=== PATIENT | male | born 1930 | race Hispanic/Latino ===

== ENCOUNTER 2019-03-02 14:48 | Observation (INO) | payer MEDICARE, OTHER ==
[2019-03-02 16:46] LABS: Basophils # (Auto) 0.1 K/mm3 (0.0-0.1); Basophils % (Auto) 1.4 % (0.0-1.8); Eosinophils # (Auto) 0.2 K/mm3 (0.0-0.4); Hematocrit 39.4 % (35.5-45.6); Hemoglobin 13.2 gm/dl (11.8-15.2); Lymphocytes # (Auto) 1.8 K/mm3 (1.2-5.4); Lymphocytes % (Auto) 18.6 % (13.4-35.0); Mean Corpuscular HGB Conc 34 % (32-34); Mean Corpuscular Volume 91 fl (84-94); Monocytes # (Auto) 0.7 K/mm3 (0.0-0.8); Platelet Count 235 K/mm3 (140-440); Red Blood Count 4.31 M/mm3 (3.65-5.03); Red Cell Distribution Width 15.2 % (13.2-15.2)
[2019-03-02 16:54] LABS: BUN/Creatinine Ratio 21; Blood Urea Nitrogen 21 mg/dL (9-20); Calcium 8.8 mg/dL (8.4-10.2); Hemolysis Index 110
[2019-03-02] MEDS ORDERED: LEVAQUIN 250MG/50ML 250 MG/50 ML BAG IV NR (17:02)
[2019-03-02] MEDS ORDERED: LACTATED RINGERS 1,000 ML IV SCH (17:03)
--- NOTE | 2019-03-02 17:07 | Anesthesia Day of Surgery ---
Anesthesia Day of Surgery - Day of Surgery Patient Examined: Yes Patient H&P Reviewed: Yes Patient is NPO: Yes
--- NOTE | 2019-03-02 17:10 | Anesthesia Consultation ---
Anesthesia Consult and Med Hx Date of service: 03/02/19 - Airway Anesthetic Teeth Evaluation: Good ROM Head & Neck: Adequate Mental/Hyoid Distance: Adequate Mallampati Class: Class II Intubation Access Assessment: Good - Pre-Operative Health Status ASA Pre-Surgery Classification: ASA2 Proposed Anesthetic Plan: General - Pulmonary Hx Smoking: Yes (STOPPED X 20 YRS ( SMOKED X 50 YRS)) Hx Sleep Apnea: No (MADNA PRE SCREEN HIGH RISK) - Cardiovascular System Hx Hypertension: Yes - Central Nervous System Hx Back Pain: Yes - Endocrine Hx Hypothyroidism: Yes (ON DAILY MEDS) - Other Systems Hx Cancer: Yes (SKIN CA ON NECK- 5 YRS AGO- REMOVED)
[2019-03-02] MEDS ORDERED: SUBLIMAZE IV PRN (17:12)
[2019-03-02] MEDS ORDERED: ZOFRAN IV PRN (17:12)
[2019-03-02] MEDS ORDERED: SUBLIMAZE ONE (17:46)
[2019-03-02] MEDS ORDERED: AMIDATE IV ONE (17:46)
[2019-03-02] MEDS ORDERED: VERSED IV NR (18:00)
[2019-03-02] MEDS ORDERED: OMNIPAQUE 300 MG/50 ML (CATH LAB) IV ONE (18:02)
[2019-03-02] MEDS ORDERED: METHYLENE BLUE ONE (18:11)
[2019-03-02] MEDS ORDERED: XYLOCAINE MPF 2% ONE (18:19)
[2019-03-02] MEDS ORDERED: ZOFRAN ONE (18:56)
[2019-03-02] MEDS ORDERED: AMBIEN PO PRN (19:01)
[2019-03-02] MEDS ORDERED: TYLENOL PO PRN (19:01)
[2019-03-02] MEDS ORDERED: PERCOCET 5/325 PO PRN (19:01)
--- NOTE | 2019-03-02 19:01 | Post Operative Note ---
Date of procedure: 03/02/19 Pre-op diagnosis: bladder cancer Post-op diagnosis: same Findings: tumor L uo and bn Procedure: cysto turby and rpgs Anesthesia: GETA Surgeon: SAIDA CHOUDHARY Estimated blood loss: minimal Pathology: list (bt) Specimen disposition: to lab Condition: stable Disposition: PACU
[2019-03-02] MEDS ORDERED: ROBINUL ONE (19:19)
--- NOTE | 2019-03-02 19:55 | Operative Report ---
PREOPERATIVE DIAGNOSES: Gross hematuria, bladder tumor. POSTOPERATIVE DIAGNOSES: Gross hematuria, bladder tumor. PROCEDURE: Cystoscopy, resection of bladder tumor. SURGEON: Jefferson Martinez MD ANESTHESIA: General. FINDINGS: This is a gentleman who had previous radiation for prostate cancer with seed many years ago. He presented with gross hematuria. Tumor was seen at the left orifice. He had no hydronephrosis. DESCRIPTION OF PROCEDURE: The patient was brought to the operating room and placed on the operating table. Following induction of anesthesia, placed in lithotomy position, prepped and draped in usual sterile fashion. The patient is 88 years old and a tumor was resected with the bipolar and then we used the Beasley knife with the regular resectoscope for pinpoint Bovie so we preserved and it did not cauterize the orifice. Retrograde at the end of resection showed the orifice and ureter to be open on the left and the right. No other filling defects were noted. The patient tolerated the procedure well. He is 88. We resected the entire tumor down to capsular fibers. We resected the muscle. It was then we were not going to give him therapy in the recovery room as the pharmacy is not prepared for it right now and the bladder was quite thin. The patient tolerated the procedure well. Urine irrigation was clear. A 22, 3-way was placed with clear irrigation. Family notified. Minimal blood loss, brought to recovery in stable condition. JOB# [id number] MARYJANE/ANTONIA
[2019-03-02] MEDS ORDERED: D5W/0.45% NACL/KCL 20 MEQ 20 MEQ/1,000 ML BAG IV SCH (20:00)
--- NOTE | 2019-03-02 20:17 | Post Anesthesia Evaluation ---
- Post Anesthesia Evaluation Patient Participated: Yes Airway Patent: Yes Stable Respiratory Function: Yes Nausea/Vomiting: No Temp > 96.8F: Yes Pain Manageable: Yes Adequeate Hydration: Yes Anesthesia Complications: No Block Receding Appropriately: Not Applicable Patient on Ventilator: No
[2019-03-02] MEDS: COLACE PO SCH (22:34)
[2019-03-03 07:30] VITALS: BP 115/50
[2019-03-03] MEDS: NACL 0.9% IR SCH ×2 (07:41→07:42)
--- NOTE | 2019-03-03 08:16 | Fluoroscopy Report ---
Retrograde urography: History: Bladder tumor. Findings: In the preliminary image there is no radiopaque calculus or abnormal calcification noted. In subsequent images with retrograde contrast in the ureters there is complete filling of the right ureter which is persistent in the delayed images. There is partial emptying of the left ureter noted more than the right. No contrast is seen in the bladder. Impression: Probable incomplete right ureteral obstruction.
[2019-03-03] MEDS: COLACE PO SCH (10:41)
--- NOTE | 2019-03-03 14:03 | Short Stay Summary ---
Short Stay Documentation Date of service: 03/03/19 - History H&P: obtained from office - Allergies and Medications Current Medications: Allergies Penicillins Allergy (Verified 02/25/19 15:57) Hives Home Medications Medication Instructions Recorded Confirmed Last Taken Type Aspirin EC 81 mg PO QDAY 02/25/19 03/02/19 02/23/19 History Dorzolamide HCl/Pf [Dorzolamide 2% 1 drop OP DAILY 02/25/19 02/25/19 03/02/19 12:00 History Eye Drop] Latanoprost 0.005% [Xalatan 0.005%] 1 drop OP QPM 02/25/19 02/25/19 03/02/19 12:00 History Levothyroxine [Synthroid] 50 mcg PO QAM 02/25/19 02/25/19 03/01/19 History Pravastatin [Pravachol] 40 mg PO QHS 02/25/19 02/25/19 03/01/19 History Prednisone [predniSONE (Butch) ER 5 mg PO QDAY 02/25/19 02/25/19 03/01/19 History TAB] hydroCHLOROthiazide [Hctz] 12.5 mg PO QDAY 02/25/19 02/25/19 03/01/19 History Active Medications Acetaminophen (Tylenol) 650 mg PO Q4H PRN PRN Reason: Pain, Mild (1-3)/Fever > 100.5 Docusate Sodium (Colace) 100 mg PO BID JOSÉ MIGUEL Last Admin: 03/02/19 22:34 Dose: 100 mg Documented by: Lactated Ringer's (Lactated Ringers) 1,000 mls @ 42 mls/hr IV DIRECT JOSÉ MIGUEL Last Admin: 03/02/19 17:20 Dose: 42 mls/hr Documented by: Potassium Chloride/Dextrose/Sod Cl (D5w/0.45% Nacl/Kcl 20 Meq) 20 meq in 1,000 mls @ 100 mls/hr IV DIRECT JOSÉ MIGUEL Last Admin: 03/02/19 23:21 Dose: 100 mls/hr Documented by: Ondansetron HCl (Zofran) 4 mg IV ONCE PRN PRN Reason: Nausea And Vomiting Oxycodone/Acetaminophen (Percocet 5/325) 1 tab PO Q6H PRN PRN Reason: Pain, Moderate (4-6) Last Admin: 03/02/19 22:45 Dose: 1 tab Documented by: Sodium Chloride (Nacl 0.9%) 2,000 ml IR DIRECT JOSÉ MIGUEL Last Admin: 03/03/19 07:42 Dose: 2,000 ml Documented by: Zolpidem Tartrate (Ambien) 5 mg PO QHS PRN PRN Reason: Sleep - Brief post op/procedure progress note Date of procedure: 03/03/19 Pre-op diagnosis: bladder tumor Post-op diagnosis: same Procedure: cysto, TURBT Anesthesia: GETA Surgeon: SAIDA CHOUDHARY Estimated blood loss: minimal Pathology: list (tumor) Condition: stable - Hospital course Hospital course: keyon gardner on chart - Disposition Condition at discharge: Stable Disposition: DC-01 TO HOME OR SELFCARE Short Stay Discharge Plan Follow up with: EULOGIO CORTEZ MD [Primary Care Provider] - 7 Days
== END 2019-03-03 15:45 | disposition home or self-care (01) ==
LOC: OR 14:48 → 3B-SURG 19:01
PROVIDERS: ADMIT Urology; ATTEND Urology
DX: C67.5 Malignant neoplasm of bladder neck (principal); C61 Malignant neoplasm of prostate; R31.0 Gross hematuria; Z88.0 Allergy status to penicillin; Z79.899 Other long term (current) drug therapy; Z98.890 Other specified postprocedural states
CPT/HCPCS: 36415; 52235; 74420; 80048; 85025; 88307; A4217; C1758; G0378; J1956; J2250; J2405; J3010; J7120; Q9967; Q9968; 88305; 88341; 88342